=== PATIENT | female | born 1980 | race Caucasian/White ===

== ENCOUNTER 2024-08-25 18:37 | Emergency (ER) | payer MEDICAID ==
[~2024-08-25] VITALS: Ht 167.6 cm; Wt 101.6 kg
[2024-08-25 18:48] VITALS: TEMP 98.2
[2024-08-25 19:14] LABS: BASOPHILS % (AUTO) 0.5 % (0-1); EOSINOPHILS # (AUTO) 0.3 X10'3 (0-0.9); EOSINOPHILS % (AUTO) 3.5 % (0-6); HEMATOCRIT 41.9 % (35.0-45.0); HEMOGLOBIN 14.4 g/dl (12.0-16.0); LYMPHOCYTES # (AUTO) 3.1 X10'3 (1.1-4.8); LYMPHOCYTES % (AUTO) 40.4 % (21-51); MEAN CORPUSCULAR HGB CONC 34.3 g/dL (33.0-36.5); MEAN CORPUSCULAR VOLUME 90.3 FL (78-98); MEAN PLATELET VOLUME 8.9 FL (7.4-10.4); MONOCYTES # (AUTO) 0.7 X10'3 (0-0.9); NEUTROPHILS # (AUTO) 3.6 X10'3 (1.8-7.7); NEUTROPHILS % (AUTO) 46.6 % (42-75); PLATELET COUNT 269 X10'3 (140-440); RED BLOOD COUNT 4.64 X10'6 (4.20-5.60); RED CELL DISTRIBUTION WIDTH 13.9 % (11.5-14.5); WHITE BLOOD COUNT 7.7 X10'3 (4.5-11.0)
[2024-08-25 19:30] LABS: ALANINE AMINOTRANSFERASE 19 U/L (12-78); ALBUMIN 3.5 G/DL (3.4-5.0); ALKALINE PHOSPHATASE 71 IU/L (46-116); ANION GAP 7 (8-16); ASPARTATE AMINO TRANSFERASE 17 U/L (10-37); BILIRUBIN,TOTAL 0.3 MG/DL (0.1-1.0); BLOOD UREA NITROGEN 17 MG/DL (7-18); BUN/CREATININE RATIO 21.3 (10.0-20.0); CALCIUM 8.1 MG/DL (8.5-10.1); CHLORIDE 105 MMOL/L (99-107); GLUCOSE 104 MG/DL (70-104); POTASSIUM 3.9 MMOL/L (3.5-5.1); SODIUM 137 MMOL/L (135-145); TOTAL CARBON DIOXIDE 24.7 MMOL/L (24-32); TOTAL PROTEIN 7.1 G/DL (6.4-8.2); eCRCL 85 ML/MIN; eGFR 78 ML/MIN
[2024-08-25 19:38] LABS: PRO BRAIN NATRIURETIC PEPTIDE 59 PG/ML (0-125)
[2024-08-25 19:46] VITALS: BP 104/53; PULSE 92; RESP 16; O2SAT 100
== END 2024-08-25 20:12 | disposition home or self-care (01) ==
LOC: ER 18:38
DX: R07.89 Other chest pain (principal); M79.671 Pain in right foot; Z88.0 Allergy status to penicillin
CPT/HCPCS: 36415; 71045; 73630; 80053; 83880; 84484; 85025; 93005; 99285

== ENCOUNTER 2024-10-20 13:56 | Outpatient (CLI) | payer MEDICAID ==
[~2024-10-20] VITALS: Ht 167.6 cm; Wt 99.8 kg
[2024-10-20] MEDS: albuterol 2.5 MG/3 ML nebule NEB ONE (15:01)
[2024-10-20 15:03] VITALS: PULSE 79; RESP 18; O2SAT 98
[2024-10-20 15:14] VITALS: PULSE 84; RESP 16
== END 2024-10-20 23:59 | disposition home or self-care (01) ==
LOC: RT 13:56
PROVIDERS: ATTEND Family Medicine
DX: J44.1 Chronic obstructive pulmonary disease with (acute) exacerbation (principal)
CPT/HCPCS: 94060; 94760

== ENCOUNTER 2025-06-27 03:50 | Emergency (ER) | payer MEDICAID ==
--- NOTE | 2025-06-27 04:29 | Physician Documentation ---
History of Present Illness ~ General Chief Complaint: Foot pain Stated Complaint: R FOOT INJURY AFTER FALL Time Seen by MD: 03:54 Primary Medical Doctor: NONE ESTABLISHED History of Present Illness Initial Comments CC: Right ankle pain HPI: 44-year-old female presents after getting right ankle caught in fence wire and rolling it prior to arrival. She took prescribed gabapentin for pain after incident. Pain is currently 6/10 and throbbing right ankle. She is unable to bear weight. No head or neck trauma, no open wounds, no fever no cough no chest pain or shortness of breath. ROS: Constitutional: Negative for fever and chills. HENT: Negative for sore throat and rhinorrhea. Eyes:Negative for pain and redness. Respiratory: Negative for cough and shortness of breath. Cardiovascular: Negative for chest pain and palpitations. Gastrointestinal: Negative for nausea and vomiting. Genitourinary: Negative for dysuria and hematuria. Musculoskeletal: positive for right ankle pain and swelling Skin: Negative for rash and pruritus. Neurological: Negative for acute numbness or weakness. PHYSICAL EXAM: General Appearance: WDWN, No Distress, Cooperative, Awake Head: No Trauma. Scalp Normal Eyes: Lids normal, conjunctiva normal ENT: Mucous membranes normal, facial bones normal, lips normal, oropharynx normal Neck: Normal active FROM, non-tender with ROM, no meningeal signs, No JVD Back: Normal active FROM, non-tender with ROM, no CVAT Resp: Normal resp rate, normal flow, lungs clear to auscultation, no resp distress, no retractions Heart: Reg rhythm, no murmur Abd: Soft, non-tender, no guarding, no rebound, no mass Musc/Skel: No chest wall tenderness, Normal ROM UE's and LE's, No acute bone/joint abnormality or tenderness Skin: Normal color, no petechia/purpura, no rash Extremities: Right lateral malleolus 1+ swelling 1+ TTP, no open wound, SI ALT, dorsalis pedis pulse 2 +, moves all toes well Neuro: Motor 5/5 & Symmetric Bilat, CN 2-12 grossly intact and symmetric bilat. Oriented x4, speech normal. Psych: Mood & Affect: Normal, Depressed: 0, Awareness & insight normal RESULTS: -Studies and Labs below INTERPRETED by ME: Xray: RIGHT ANKLE THREE VIEW INDICATION: PAIN RESULTS: NO FRACTURE, NO DISLOCATION PROCEDURE: RIGHT ANKLE SPLINT INDICATION: RIGHT ANKLE PAIN AND SWELLING RIGHT ANKLE VELCRO SPLINT PLACED PATIENT WILL BE GIVEN CRUTCHES/CRUTCH TRAINING Additional REPEAT EVALUATION: Results and plan of care discussed with patient, patient understands and is agreeable to plan and disposition MDM: 44-YEAR-OLD FEMALE PRESENTS AFTER TWISTING RIGHT ANKLE/BLUNT TRAUMA FOUND TO HAVE RIGHT ANKLE SPRAIN, NO FRACTURE OR DISLOCATION, NO OPEN WOUNDS, NEUROVASCULARLY INTACT, PATIENT WILL BE IMMOBILIZED AND CAN FOLLOW UP WITH PMD OR ORTHOPEDICS PLANNED, STRICT RETURN PRECAUTIONS ER COURSE -I have reviewed the triage note. History obtained from THE PATIENT -All Labs, if applicable, independently reviewed by me I checked in EMR for old Records Admission considered BUT NO EVIDENCE OF OPEN FRACTURE Laboratory and radiology testing considered but deemed not necessary during this current emergency department visit: CT ANKLE Treatment/therapeutic interventions considered but deemed not necessary during this emergency department visit: IV PAIN MEDICATION Limited: (2 points from category 1 or one discussion with independent historian). Moderate: one of the following (3 points from category 1, or independent interpretations of tests performed by another physician/QHP: (ct,ecg,rad ad,rhythm strip,or comparing xray to prior), or discussion of tests or management with other professionals (not including [facility] ER doc/PA or family members.) High: (2 of 3 from : category 1 (3 points), independent interpretation of tests performed by another physician/QHP, and discussion of tests or management). Prior [facility] ER notes reviewed: Category 1: Number of Tests ordered or reviewed: 3 Number of Independent Historians: 2 SOCIAL DETERMINANTS OF HEALTH Problems related to: [ ] Challenges with access to Primary Care or Outpatient Speciality Care [ ] Psychosocial circumstances such as mental health issues [ ] Social environment: such as violence or substance abuse [ ] Housing and economic circumstances: such as homelessness [ ] Employment and unemployment: such as recently loss of employment [ ] Occupational exposures or injuries: [ ] Accessing ED outside of normal PCP hours [ ] Language barrier: [ ] Primary support group, including family circumstances: Portions of this chart may have been created with [employer] voice recognition software. Occasional wrong-word or sound-alike substitutions may have occurred due to the inherent limitations of voice recognition software. Please read the chart carefully and recognize, using context, where these substitutions have occurred. Medication Reconciliation Allergies: Coded Allergies: Penicillins (Verified Allergy, Unknown, FACE SWELLING, AND SORES A BABY, 06/27/25) egg (Verified Adverse Reaction, Unknown, 06/27/25) Uncoded Allergies: DAIRY (Adverse Reaction, Unknown, 08/25/24) PT STATES "MY BRAIN SWELLS UP" Progress Results/Orders Results/Orders Orders - JANNIE GILLESPIE MD Foot, Complete (3vw Min) (06/27/25 03:58) * Miscellaneous Nursing Orders (06/27/25 05:02) Completed Orders - JANNIE GILLESPIE MD Foot, Complete (3vw Min) (06/27/25 03:58) Vital Signs 06/27/25 03:55 Temp 97.6 Pulse 98 Resp 15 B/P (MAP) 147/88 Pulse Ox 98 Medical Decision Making Additional information obtaine: other Findings COLOR Differential Diagnosis FRACTURE, SPRAIN, STRAIN, DISLOCATION, INFECTION Departure Time of Disposition: 05:21 Disposition: 01 HOME / SELF CARE / HOMELESS Impression: Primary Impression: Acute right ankle pain Condition: Stable Discharge Instructions: Sprains Referrals: NO PRIMARY CARE PROVIDER (PCP) Comments FOLLOW UP WITH YOUR PRIMARY CARE PHYSICIAN IN 3-5 DAYS FOR FURTHER EVALUATION Education Educated: Patient, Family Educated regarding: diagnosis, treatment Signature Scribe Signature: XX Attestation: THE NOTE ACCURATELY REFLECTS WORK AND DECISIONS MADE BY ME.JANNIE RECINOS MD, MD Jun 27, 2025 04:29
--- NOTE | 2025-06-27 04:42 | RADIOLOGY REPORT ---
CLINICAL INDICATION: FOOT PAIN TECHNIQUE: DI FOOT, COMPLETE (3VW MIN) COMPARISON: DI FOOT, COMPLETE (3VW MIN) on DOS: 08/25/24 FINDINGS/IMPRESSION: : There is no evidence of acute fracture or dislocation. Soft tissues are unremarkable.
[2025-06-27] MEDS ORDERED: furosemide 10 MG/1 ML 10ml inj IV ONE (05:05)
[2025-06-27 06:00] VITALS: BP 145/86; PULSE 96; RESP 18; TEMP 98.6; O2SAT 99
== END 2025-06-27 06:01 | disposition home or self-care (01) ==
LOC: ER 03:52
DX: S93.491A Sprain of other ligament of right ankle, initial encounter (principal); Z91.0120 Allergy to eggs, unspecified; Z88.0 Allergy status to penicillin; Z59.00 Homelessness unspecified; Z56.0 Unemployment, unspecified; X50.9XXA Other and unspecified overexertion or strenuous movements or postures, initial encounter; Y93.89 Activity, other specified; Y92.89 Other specified places as the place of occurrence of the external cause; Y99.8 Other external cause status
CPT/HCPCS: 29515; 73630; 99283; L4360; 29125